=== PATIENT | female | born 1965 | race African-American/Black ===

== ENCOUNTER 2016-12-06 08:01 | Inpatient (IN) | payer OTHER ==
[~2016-12-06] VITALS: Ht 154.9 cm; Wt 60.0 kg
[2016-12-06 08:03] VITALS: BP 211/103; PULSE 114; RESP 20; TEMP 98.4; O2SAT 100
[2016-12-06] MEDS ORDERED: VITA100064 PO (08:20)
[2016-12-06] MEDS ORDERED: SODIUM CHLORIDE 0.9% FLUSH 10 ML FLUSH IVF PRN (09:00)
[2016-12-06 09:02] VITALS: RESP 18; O2SAT 98
--- NOTE | 2016-12-06 09:02 | PD ---
HPI Chief Complaint: Numbness/Tingling Time Seen by Provider: 08:42 Travel History International Travel<30 days: No Contact w/Intl Traveler<30days: No Traveled to known affect area: No History of Present Illness HPI This patient complains of weakness and numbness in her right hand. She also has some speech slurring and facial droop. Duration is 24 hours. Started yesterday at 9 AM. No alleviating factors. She is not better or worse since yesterday. No left-sided symptoms. She denies headache or head injury. She takes no blood thinners. Symptoms are moderately severe. She has no history of TIA or CVA. Blood pressure is 200 systolic on multiple checks. She says that she is not supposed to be on antihypertensives. PFSH Past Medical History ?: Not : 4 Para: 3 Miscarriage: 1 Past Surgical History Surgical History: No Previous Surgery Social History Alcohol Use: No Tobacco Use: No Substance Use: No Allergies-Medications (Allergen,Severity, Reaction): Coded Allergies: No Known Allergies (Unverified , 12/06/16) Reported Meds & Prescriptions Reported Meds & Active Scripts Active Reported Vitamin D (Cholecalciferol) 1,000 Unit Tab 1,000 Units PO DAILY Review of Systems General / Constitutional: No: Fever Eyes: No: Visual changes HENT: No: Headaches Cardiovascular: No: Chest Pain or Discomfort Respiratory: No: Shortness of Breath Gastrointestinal: No: Abdominal Pain Genitourinary: No: Dysuria Musculoskeletal: No: Pain Skin: No Rash Neurologic: Positive: Weakness, Slurred Speech, Sensory Disturbance Psychiatric: No: Depression Endocrine: No: Polydipsia Hematologic/Lymphatic: No: Easy Bruising Physical Exam Narrative GENERAL: Well-nourished, well-developed patient in no apparent distress. SKIN: Focused skin assessment reveals no rash and nodules. Skin is Warm and dry. HEAD: Atraumatic. Normocephalic. EYES: Pupils equal and round. No scleral icterus. No injection or drainage. ENT: No nasal bleeding or discharge. Mucous membranes pink and moist. NECK: Trachea midline. No JVD. No meningeal signs CARDIOVASCULAR: Regular rate and rhythm. No murmur appreciated. RESPIRATORY: No accessory muscle use. Clear to auscultation. Breath sounds equal bilaterally. GASTROINTESTINAL: Abdomen soft, non-tender, nondistended. Hepatic and splenic margins not palpable. MUSCULOSKELETAL: No obvious deformities. No clubbing. No cyanosis. No edema. NEUROLOGICAL: Awake and alert. No obvious cranial nerve deficits. 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 Legs show full strength. Has subjective diminishment of sensation in the right hand to light and sharp touch. Right forearm and upper arm are normal. Understandable but slightly slurred speech. Mental status is normal. Demonstrates right sided facial droop PSYCHIATRIC: Appropriate mood and affect; insight and judgment normal. Data Data Last Documented VS Vital Signs Date Time Temp Pulse Resp B/P Pulse Ox O2 Delivery O2 Flow Rate FiO2 12/06/16 09:58 83 18 183/99 97 Room Air 12/06/16 08:03 98.4 Orders Electrocardiogram (12/06/16 08:49) Prothrombin Time / Inr (Pt) (12/06/16 08:49) Act Partial Throm Time (Ptt) (12/06/16 08:49) Complete Blood Count With Diff (12/06/16 08:49) Basic Metabolic Panel (Bmp) (12/06/16 08:49) Ct Brain W/O Iv Contrast(Rout) (12/06/16 08:49) Ecg Monitoring (12/06/16 08:49) Iv Access Insert/Monitor (12/06/16 08:49) Oximetry (12/06/16 08:49) Sodium Chloride 0.9% Flush (Ns Flush) (12/06/16 09:00) Ed Urine Pregnancytest Poc (12/06/16 08:49) Labs Laboratory Tests Test 12/06/16 08:45 White Blood Count 8.8 TH/MM3 Red Blood Count 4.59 MIL/MM3 Hemoglobin 12.7 GM/DL Hematocrit 38.4 % Mean Corpuscular Volume 83.8 FL Mean Corpuscular Hemoglobin 27.6 PG Mean Corpuscular Hemoglobin 33.0 % Concent Red Cell Distribution Width 13.9 % Platelet Count 399 TH/MM3 Mean Platelet Volume 8.8 FL Neutrophils (%) (Auto) 50.7 % Lymphocytes (%) (Auto) 35.8 % Monocytes (%) (Auto) 8.7 % Eosinophils (%) (Auto) 4.3 % Basophils (%) (Auto) 0.5 % Neutrophils # (Auto) 4.5 TH/MM3 Lymphocytes # (Auto) 3.2 TH/MM3 Monocytes # (Auto) 0.8 TH/MM3 Eosinophils # (Auto) 0.4 TH/MM3 Basophils # (Auto) 0.0 TH/MM3 CBC Comment DIFF FINAL Differential Comment Prothrombin Time 11.4 SEC Prothromb Time International 1.0 RATIO Ratio Activated Partial 28.6 SEC Thromboplast Time Sodium Level 139 MEQ/L Potassium Level 3.2 MEQ/L Chloride Level 106 MEQ/L Carbon Dioxide Level 25.7 MEQ/L Anion Gap 7 MEQ/L Blood Urea Nitrogen 11 MG/DL Creatinine 0.73 MG/DL Estimat Glomerular Filtration 103 ML/MIN Rate Random Glucose 128 MG/DL Calcium Level 8.5 MG/DL [facility] Medical Decision Making Medical Screen Exam Complete: Yes Emergency Medical Condition: Yes Medical Record Reviewed: Yes Differential Diagnosis Acute ischemic stroke, intracranial hemorrhage, hypertensive emergency Narrative Course I have reviewed the patient's electronic medical record. IV placed Patient's blood pressure is 200 systolic but she is appearing to have an acute ischemic stroke so I'm going to employ permissive hypertension at this point. Should her systolic exceed 220 I will treat with IV labetalol. I reviewed her EKG reveals sinus rhythm without ectopy Extended cardiac monitoring shows sinus rhythm without ectopy CBC is normal Metabolic profile is normal Coagulation studies are normal Urine is negative Brain CT shows chronic ischemic white matter change without hemorrhage Blood pressure now down to 180 systolic Case reviewed with hospitalist will admit for acute ischemic stroke but not a stroke alert as this is well outside the window Diagnosis Primary Impression: Acute ischemic stroke Additional Impression: Accelerated hypertension Admitting Information Admitting Physician Requests: Admit Efrain Reilly MD Dec 06, 2016 09:02
[2016-12-06 09:14] LABS: AUTOMATED NEUTROPHIL # 4.5 TH/MM3 (1.8-7.7); BASOPHIL % 0.5 % (0.0-2.0); EOSINOPHIL # 0.4 TH/MM3 (0-0.4); EOSINOPHIL % 4.3 % (0.0-4.0); HEMATOCRIT 38.4 % (35.0-46.0); HEMO FLAGS DIFF FINAL; LYMPH % 35.8 % (9.0-44.0); LYMPHOCYTE # 3.2 TH/MM3 (1.0-4.8); MEAN CELL VOLUME 83.8 FL (80.0-100.0); MEAN CORPUSCULAR HEMOGLOBIN 27.6 PG (27.0-34.0); MONO % 8.7 % (0.0-8.0); NEUT % 50.7 % (16.0-70.0); PLATELET COUNT 399 TH/MM3 (150-450); RED BLOOD COUNT 4.59 MIL/MM3 (4.00-5.30); RED CELL DISTRIBUTION WIDTH 13.9 % (11.6-17.2); WHITE BLOOD COUNT 8.8 TH/MM3 (4.0-11.0)
[2016-12-06 09:26] LABS: BICARBONATE 25.7 MEQ/L (21.0-32.0); POTASSIUM 3.2 MEQ/L (3.5-5.1)
[2016-12-06 09:29] LABS: APTT (PATIENT) 28.6 SEC (24.3-30.1); PROTHROMBIN TIME - PATIENT 11.4 SEC (9.8-11.6)
[2016-12-06 09:58] VITALS: BP 183/99; PULSE 83; RESP 18; O2SAT 97
--- NOTE | 2016-12-06 10:03 | RADRPT ---
EXAM DATE/TIME: 12/06/2016 09:44 [facility] COMPARISON: No previous studies available for comparison. INDICATIONS : Right hand numbness and dysphasia today. RADIATION DOSE: 56.35 CTDIvol (mGy) MEDICAL HISTORY : None SURGICAL HISTORY : None. ENCOUNTER: Initial ACUITY: 1 day PAIN SCALE: 0/10 LOCATION: Bilateral head TECHNIQUE: Multiple contiguous axial images were obtained of the head. Using automated exposure control and adj ustment of the mA and/or kV according to patient size, radiation dose was kept as low as reasonably a chievable to obtain optimal diagnostic quality images. DICOM format image data is available electro nically for review and comparison. FINDINGS: Ventricles and cisterns are of normal size and configuration. Patchy hypodensities in the bilateral p eriventricular white matter left greater than right felt to represents sequelae of remote insult. The re are no signs of acute infarct, hemorrhage or mass. Osseous structures are intact. CONCLUSION: Chronic appearing white matter changes bilaterally. If there is clinical suspicion of acute ischemia than an MRI is recommended. Ty Banegas MD on December 06, 2016 at 10:00 Board Certified Radiologist. This report was verified electronically.
--- NOTE | 2016-12-06 11:25 | HHI.HP ---
HPI Service [facility] Hospitalists Primary Care Physician Robin Mueller M.D. Admission Diagnosis acute ischemic CVA Chief Complaint: slurred speech. right hand weakness Travel History International Travel<30 Days: No Contact w/Intl Traveler <30 Da: No Traveled to Known Affected Are: No History of Present Illness Pt is 50 yo with no known medical problems. She developed right facial droop and slurred speech and also right hand weakness/clumsiness yesterday about 9am or 24hrs prior to presentation. Sx's now are no better or worse. She knew she was having a stroke per her history but decided to wait. Denies headache and no hx of cva or afib. denies hx of thrombosis of any kind in her or family. In ED CT head negative and bp quite elevated...exam consistent with left hemispheric acute cva. Review of Systems Other right facial droop right hand weakness. 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 and unable to lift right arm above the shoulder ext no edema Vital Signs Date Time Temp Pulse Resp B/P Pulse Ox O2 Delivery O2 Flow Rate FiO2 12/06/16 09:58 83 18 183/99 97 Room Air 12/06/16 09:02 18 98 Room Air 12/06/16 08:03 98.4 114 20 211/103 100 Room Air Laboratory Laboratory Tests Test 12/06/16 08:45 White Blood Count 8.8 Red Blood Count 4.59 Hemoglobin 12.7 Hematocrit 38.4 Mean Corpuscular Volume 83.8 Mean Corpuscular Hemoglobin 27.6 Mean Corpuscular Hemoglobin 33.0 Concent Red Cell Distribution Width 13.9 Platelet Count 399 Mean Platelet Volume 8.8 Neutrophils (%) (Auto) 50.7 Lymphocytes (%) (Auto) 35.8 Monocytes (%) (Auto) 8.7 Eosinophils (%) (Auto) 4.3 Basophils (%) (Auto) 0.5 Neutrophils # (Auto) 4.5 Lymphocytes # (Auto) 3.2 Monocytes # (Auto) 0.8 Eosinophils # (Auto) 0.4 Basophils # (Auto) 0.0 CBC Comment DIFF FINAL Differential Comment Prothrombin Time 11.4 Prothromb Time International 1.0 Ratio Activated Partial 28.6 Thromboplast Time Sodium Level 139 Potassium Level 3.2 Chloride Level 106 Carbon Dioxide Level 25.7 Anion Gap 7 Blood Urea Nitrogen 11 Creatinine 0.73 Estimat Glomerular Filtration 103 Rate Random Glucose 128 Calcium Level 8.5 Result Diagram: 12/06/1645 12/06/16844 Assessment and Plan Problem List: (1) Acute ischemic stroke Status: Acute Plan: --Pt is 50 yo with no reported pmh --Presents with severe htn and right facial droop/slurring of speech, and right upper ext weakness. --Admitted with left hemispheric acute ischemic cva. probably embolic in nature ADDENDUM: APPEARS TO BE EMBOLISM IN LEFT MCA WITH ASSOCIATED AREA IN FRONTOPARIETAL LOBES OF ISCHEMIC CVA. I SPOKE TO IR DR CESPEDES AND SHE IS PAST THE WINDOW AND EMBOLECTOMY AT THIS POINT WOULD BE HIGH RISK FOR HEMORRHAGE. ADVISES NO INTERVENTION. SPOKE TO NEUROLOGY WHO AGREES AND NO ANTICOAGULATION AT THIS POINT. JUST ASA. ( I REVIEWED THE MRI/A AND RECOMMENDATION WITH PT AND DAUGHTER AT BEDSIDE) will get mri/a brain to eval ischemic area/distribution. ?embolic carotid u/s tele/echo to eval for embolic source might need hypercoag w/up if no obvious source neuro consulted asa ordered check FLP HOB flat. IVF permissive htn prn vasotec PT/OT/ST Pt is out of TPA window (2) HTN (hypertension) Status: Acute Plan: see above Physician Certification Order for Inpatient Services The services are ordered in accordance with Medicare regulations or non- Medicare payer requirements, as applicable. In the case of services not specified as inpatient-only, they are appropriately provided as inpatient services in accordance with the 2-midnight benchmark. days is the estimated time the patient will need to remain in the hospital, assuming treatment plan goals are met and no additional complications. Remi Escoto MD Dec 06, 2016 11:25
[2016-12-06] MEDS ORDERED: ENALAPRILAT 1.25 MG/ML VIAL IV PUSH PRN (11:30)
[2016-12-06] MEDS ORDERED: ACETAMINOPHEN 325 MG TAB PO PRN (12:00)
[2016-12-06] MEDS ORDERED: POTASSIUM CHLORIDE 10 MEQ CONTROLLED RELEASE TAB PO ONE (12:00)
[2016-12-06] MEDS: NS + KCL 20 MEQ INJ 1,000 ML IV SCH ×2 (12:00→23:55)
[2016-12-06] MEDS ORDERED: ONDANSETRON HCL 4 MG/2 ML VIAL IV PUSH PRN (12:00)
[2016-12-06] MEDS ORDERED: SODIUM CHLOR 0.9% 1000 ML INJ 1,000 ML IV SCH (12:00)
[2016-12-06] MEDS ORDERED: ASPIRIN EC 325 MG TABEC PO ONE (12:00)
[2016-12-06 12:26] LABS: BETA HCG QUANT LESS THAN 1 MIU/ML (0-5)
--- NOTE | 2016-12-06 12:34 | RADRPT ---
EXAM DATE/TIME: 12/06/2016 12:04 [facility] COMPARISON: CT BRAIN W/O CONTRAST, December 06, 2016, 9:44. INDICATIONS : CVA. Right hand numbness and dysphasia today. MEDICAL HISTORY : None. SURGICAL HISTORY : None. ENCOUNTER: Initial ACUITY: 1 day PAIN SCORE: 0/10 LOCATION: cranial Please note a normal MRA of the brain does not entirely exclude the possibility of a small aneurysm, nor the possibility of distal intracranial vessel disease. TECHNIQUE: 3D time of flight MRA was performed. Source images, multiplanar STS MIP, and 3D volume MIP reconstru ctions were reviewed. FINDINGS: There is excellent visualization of the major intracranial arteries out to the second-order branch ve ssels. There is no evidence for aneurysm, and no evidence for vascular malformation. There is a foca l short segment area of signal void/luminal narrowing best seen on the source images at the M1 divisi on of the left middle cerebral artery extending 2 mm. This is consistent with a focal severe stenosis at this level. CONCLUSION: Focal severe narrowing of the left middle cerebral artery M1 division identified. A focal thrombus at this level, partially occlusive can result in this appearance. Ty Banegas MD on December 06, 2016 at 12:28 Board Certified Radiologist. This report was verified electronically.
--- NOTE | 2016-12-06 12:38 | RADRPT ---
EXAM DATE/TIME: 12/06/2016 12:04 [facility] COMPARISON: No previous studies available for comparison. INDICATIONS : CVA. Right hand numbness and dysphasia today. MEDICAL HISTORY : None. SURGICAL HISTORY : None. ENCOUNTER: Initial ACUITY: 1 day PAIN SCORE: 0/10 LOCATION: cranial TECHNIQUE: Multiplanar, multisequence MRI of the brain was performed without contrast. FINDINGS: There are multiple small acute infarcts in the deep white matter of the left frontoparietal region, p redominantly in the left frontal lobe. There is no associated mass effect or shift. No evidence for h emorrhage. No right-sided hemispheric infarcts are identified. No hydrocephalus. No abnormal extra-axial fluid c ollections are present. There is mucosal thickening in the ethmoid air cells and maxillary sinuses. CONCLUSION: 1. Multiple small acute infarcts in the deep white matter of the left frontoparietal region, predomin antly in the left frontal lobe in a linear orientation all measuring up to about a centimeter in sanchez sverse diameter. Timothy Drake MD on December 06, 2016 at 12:31 Board Certified Radiologist. This report was verified electronically.
--- NOTE | 2016-12-06 12:46 | RADRPT ---
EXAM DATE/TIME: 12/06/2016 11:36 [facility] COMPARISON: No previous studies available for comparison. INDICATIONS : Slurred speech. MEDICAL HISTORY : Weakness. Slurred speed. Numbness, right hand. Facial droop. History of pregnancies. SURGICAL HISTORY : None. ENCOUNTER: Initial ACUITY: 2 days PAIN SCORE: 0/10 LOCATION: Bilateral neck PEAK SYSTOLIC VELOCITIES (cm/sec): ICA/CCA RATIO: Right: 1.5 Left: 1.2 ICA: Right: 108 Left: 105 CCA: Right: 73 Left: 91 ECA: Right: 76 Left: 100 VERTEBRAL: Right: 43 antegrade Left: 60 antegrade Elevated flow velocities and ICA/CCA ratios have been found to correlate with increased degrees of vessel stenosis, calculated as percentage of diameter relative to a normal segment of distal ICA/CCA FINDINGS: RIGHT CAROTID: No significant stenosis is visualized. The waveforms are within normal limits. LEFT CAROTID: No significant stenosis is visualized. The waveforms are within normal limits. VERTEBRAL ARTERIES: Antegrade flow is seen in both vertebral arteries. MISCELLANEOUS: None. CONCLUSION: Normal examination. Ty Banegas MD on December 06, 2016 at 12:43 Board Certified Radiologist. This report was verified electronically.
[2016-12-06 13:37] VITALS: BP 195/106; PULSE 97; RESP 16; TEMP 97.5; O2SAT 98
[2016-12-06 16:30] VITALS: BP 191/94; PULSE 91; RESP 18; TEMP 97.4; O2SAT 96
[2016-12-06 22:35] VITALS: BP 170/92; PULSE 82; RESP 18; TEMP 98.7; O2SAT 100
[2016-12-07] VITALS (7 sets, daily range): BP systolic 140–170; BP diastolic 82–104; PULSE 77–90; RESP 17–20; TEMP 98.4–99.5; O2SAT 98–100
--- NOTE | 2016-12-07 08:20 | MB ---
cc: EVANS HUTCHISON M.D. DATE OF CONSULTATION: 12/06/2016 HISTORY OF PRESENT ILLNESS She is a 50-year-old -[place] woman with a neurologic deficit yesterday but only came to the hospital today. It appears that she developed symptoms yesterday morning and she developed right sided weakness, predominantly involving face and arm and she was brought to the hospital today. The patient has no history of major medical problems, apparently not on any regular medications, does not take aspirin. The case was discussed with the admitting physician Dr. Escoto earlier today. EXAMINATION Exam shows the patient to be awake and reasonably alert, oriented with a dysarthric speech and moderate right facial weakness. 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 She is able to raise the right leg and oppose some reasonable resistance and the leg weakness is rather mild. Reflexes were 1+, plantar responses flexor. The pupils are equal and reactive and visual avitia full. DATA The ancillary data includes an MRI brain that showed multiple small acute infarcts in the left frontoparietal region. The carotid ultrasound showed normal findings and the MRA head showed severe narrowing of the left M1 division, possibly sub-occlusion thrombus. CBC is essentially normal. Chemistry with glucose 128, potassium 3.2, otherwise normal. INR and APTT is normal. ASSESSMENT Left middle cerebral artery distribution ischemic areas of infarction. Onset of symptoms over 24 hours before the patient came to the hospital. Therefore, not a candidate for thrombectomy, etc. Aspirin was started. She is not in atrial fibrillation and there is no known history of such. Echocardiogram to be done, we will request lipid profile and hypercoag profile. No obvious risk factors, the patient is not on any hormones, no smoking and no drug use. I will follow the neurological course. Thank you for asking us to assist in her care. Evans Hutchison MD OFC/TLL /7:28 PM /8:15 AM
[2016-12-07] MEDS: ASPIRIN EC 325 MG TABEC PO SCH (08:42)
[2016-12-07] MEDS ORDERED: PROPOFOL 200 MG/20 ML AMP IV ONE (08:57)
[2016-12-07 09:17] LABS: HDL CHOLESTEROL 72.3 MG/DL (40.0-60.0)
--- NOTE | 2016-12-07 14:08 | EKG ---
Date Performed: 12/06/2016 Time Performed: 09:20:32 PTAGE: 50 years EKG: Sinus rhythm WITH SHORT DE INTERVAL BORDERLINE ECG NO PREVIOUS TRACING DOCTOR: Jordi Bazzi Interpretating Date/Time 12/07/2016 14:07:41
--- NOTE | 2016-12-07 15:18 | HHI.PR ---
Subjective Remarks Pt still with RUE weakness and some cognitive speech deficits Pt has been ambulating in the room and in the halls without difficulty Denies any dysphagia, tolerating her diet without difficulty Pt still on permissive HTN Objective Vitals Vital Signs Date Time Temp Pulse Resp B/P Pulse Ox O2 Delivery O2 Flow Rate FiO2 12/07/16 12:00 98.4 79 18 152/92 98 12/07/16 08:24 98.7 85 18 170/92 99 12/07/16 04:50 98.6 79 18 154/92 99 12/07/16 00:30 98.6 77 17 170/104 100 12/06/16 22:35 98.7 82 18 170/92 100 12/06/16 16:30 97.4 91 18 191/94 96 12/06/16 12/06/16 12/07/16 15:00 23:00 07:00 Intake Total 100 ml Balance 100 ml Intake Oral 100 ml # Voids 2 1 2 # Bowel Movements 0 0 Result Diagram: 12/06/16 0845 12/06/16 0845 Other Results Laboratory Tests Test 12/06/16 12/07/16 08:45 08:10 White Blood Count 8.8 TH/MM3 Red Blood Count 4.59 MIL/MM3 Hemoglobin 12.7 GM/DL Hematocrit 38.4 % Mean Corpuscular Volume 83.8 FL Mean Corpuscular Hemoglobin 27.6 PG Mean Corpuscular Hemoglobin 33.0 % Concent Red Cell Distribution Width 13.9 % Platelet Count 399 TH/MM3 Mean Platelet Volume 8.8 FL Neutrophils (%) (Auto) 50.7 % Lymphocytes (%) (Auto) 35.8 % Monocytes (%) (Auto) 8.7 % Eosinophils (%) (Auto) 4.3 % Basophils (%) (Auto) 0.5 % Neutrophils # (Auto) 4.5 TH/MM3 Lymphocytes # (Auto) 3.2 TH/MM3 Monocytes # (Auto) 0.8 TH/MM3 Eosinophils # (Auto) 0.4 TH/MM3 Basophils # (Auto) 0.0 TH/MM3 CBC Comment DIFF FINAL Differential Comment Prothrombin Time 11.4 SEC Prothromb Time International 1.0 RATIO Ratio Activated Partial 28.6 SEC Thromboplast Time Sodium Level 139 MEQ/L Potassium Level 3.2 MEQ/L Chloride Level 106 MEQ/L Carbon Dioxide Level 25.7 MEQ/L Anion Gap 7 MEQ/L Blood Urea Nitrogen 11 MG/DL Creatinine 0.73 MG/DL Estimat Glomerular Filtration 103 ML/MIN Rate Random Glucose 128 MG/DL Calcium Level 8.5 MG/DL Human Chorionic Gonadotropin, LESS THAN 1 Quant MIU/ML Erythrocyte Sedimentation Rate 13 mm/hr Triglycerides Level 61 MG/DL Cholesterol Level 190 MG/DL LDL Cholesterol 106 MG/DL HDL Cholesterol 72.3 MG/DL Cholesterol/HDL Ratio 2.62 RATIO Imaging Last Impressions Head CT 12/06/16 0849 Signed Impressions: Service Date/Time: Tuesday, December 06, 2016 09:44 - CONCLUSION: Chronic appearing white matter changes bilaterally. If there is clinical suspicion of acute ischemia than an MRI is recommended. Ty Banegas MD Head Magnetic Resonance Angiography 12/06/16 0000 Signed Impressions: Service Date/Time: Tuesday, December 06, 2016 12:04 - CONCLUSION: Focal severe narrowing of the left middle cerebral artery M1 division identified. A focal thrombus at this level, partially occlusive can result in this appearance. Ty Banegas MD Carotid Artery Ultrasound 12/06/16 0000 Signed Impressions: Service Date/Time: Tuesday, December 06, 2016 11:36 - CONCLUSION: Normal examination. Ty Banegas MD Brain MRI 12/06/16 0000 Signed Impressions: Service Date/Time: Tuesday, December 06, 2016 12:04 - CONCLUSION: 1. Multiple small acute infarcts in the deep white matter of the left frontoparietal region, predominantly in the left frontal lobe in a linear orientation all measuring up to about a centimeter in transverse diameter. Timothy Drake MD Objective Remarks General: NAD, AAOx3 Chest: CTA Cardiac: Regular Abd: +BS, soft ND/NT Ext: RUE weakness compared to the LUE, equal strength bilaterally in LE, dysarthria. A/P Problem List: (1) Acute ischemic stroke Status: Acute Plan: - Pt is 50 yo with no reported PMH. - She presented with severe HTN and right facial droop/slurring of speech, with right upper ext weakness. - Admitted with left hemispheric acute ischemic CVA - Head CT (12/06) --> Chronic appearing white matter changes bilaterally. - Brain MRI (12/06) --> Multiple small acute infarcts in the deep white matter of the left frontoparietal region, predominantly in the left frontal lobe in a linear orientation all measuring up to about a centimeter in transverse diameter. - MRA Brain (12/06) --> Focal severe narrowing of the left middle cerebral artery M1 division identified. A focal thrombus at this level, partially occlusive can result in this appearance. - Carotid US (12/06) --> Normal examination - Pt found to have embolism in the left MCA with associated area in frontoparietal lobes of ischemic CVA. The case was discussed yesterday between Dr. Escoto and Dr. Medeiros and she was past the time frame for embolectomy and would have been high risk for hemorrhage. The case was alco discussed with Neurology and pt was felt to be high risk for bleeding with anticoagulants at this time as well. Pt placed just on ASA. - 2D echo pending, may consider MARIA INES - Telemetry - Holter monitor - Hypercoag w/up pending - Neuro following. - Start statin - IVF - Permissive HTN - PT/OT/ST - Vasotec PRN for systolic BP over 220 (2) HTN (hypertension) Status: Acute Plan: see above Cynthia Richardson Dec 07, 2016 15:18
[2016-12-07] MEDS: NS + KCL 20 MEQ INJ 1,000 ML IV SCH (15:42)
[2016-12-07] MEDS: ATORVASTATIN 10 MG TAB PO SCH (16:00)
--- NOTE | 2016-12-07 16:36 | ECHRPT ---
Indication: cva/tia CONCLUSIONS Normal left ventricular size. There is assymetric septal hypertrophy. (mild) The left ventricular systolic function is hyperdynamic with an estimated ejection fraction in the ra nge of 65- 70%. No regional wall motion abnormalities are present. [id number] mitral valve regurgitation. No mitral valve stenosis. Trace aortic valve regurgitation. There is mild tricuspid valve regurgitation. There is estimated mild pulmonary hypertension present (range 40-50 mmHg). BP: / HR: Rhythm: MEASUREMENTS (Male / Female) Normal Values Technical Quality:Good 2D ECHO LV Diastolic Diameter PLAX 4.9 cm 4.2 - 5.9 / 3.9 - 5.3 cm LV Systolic Diameter PLAX 3.2 cm IVS Diastolic Thickness 1.2 cm 0.6 - 1.0 / 0.6 - 0.9 cm LVPW Diastolic Thickness 0.8 cm 0.6 - 1.0 / 0.6 - 0.9 cm LV Relative Wall Thickness 0.4 RV Internal Dim ED PLAX 2.3 cm M-MODE Aortic Root Diameter MM 2.9 cm LA Systolic Diameter MM 3.3 cm LA Ao Ratio MM 1.1 AV Cusp Separation MM 1.8 cm DOPPLER Mitral E Point Velocity 67.6 cm/s Mitral A Point Velocity 74.5 cm/s Mitral E to A Ratio 0.9 LV E' Lateral Velocity 8.8 cm/s Mitral E to LV E' Lateral Ratio 7.7 LV E' Septal Velocity 8.9 cm/s Mitral E to LV E' Septal Ratio 7.6 TR Peak Velocity 276.0 cm/s TR Peak Gradient 30.5 mmHg FINDINGS LEFT VENTRICLE Normal left ventricular size. There is assymetric septal hypertrophy. (mild) The left ventricular systolic function is hyperdynamic with an estimated ejection fraction in the ra nge of 65- 70%. No regional wall motion abnormalities are present. RIGHT VENTRICLE Normal right ventricular size and systolic function. LEFT ATRIUM The left atrial size is normal. RIGHT ATRIUM The right atrial size is normal. ATRIAL SEPTUM Normal atrial septal thickness without atrial level shunting by limited color doppler interrogation. AORTA The aortic root and proximal ascending aorta are normal in size on limited imaging. MITRAL VALVE Structurally normal mitral valve. [id number] mitral valve regurgitation. No mitral valve stenosis. AORTIC VALVE Trileaflet aortic valve. Trace aortic valve regurgitation. TRICUSPID VALVE Structurally normal tricuspid valve. There is mild tricuspid valve regurgitation. There is estimated mild pulmonary hypertension present (range 40-50 mmHg). PULMONARY VALVE The pulmonary valve is not well visualized. VESSELS The inferior vena cava is normal in size. PERICARDIUM No pericardial effusion. Cipriano Thomas MD (Electronically Signed) Final Date:07 December 2016 16:35
[2016-12-08] VITALS (7 sets, daily range): BP systolic 135–162; BP diastolic 76–95; PULSE 70–83; RESP 18; TEMP 98–98.9; O2SAT 98–100
[2016-12-08] MEDS: NS + KCL 20 MEQ INJ 1,000 ML IV SCH (00:27)
[2016-12-08 07:32] LABS: AUTOMATED NEUTROPHIL # 4.5 TH/MM3 (1.8-7.7); BASOPHIL % 0.4 % (0.0-2.0); EOSINOPHIL # 0.2 TH/MM3 (0-0.4); EOSINOPHIL % 2.9 % (0.0-4.0); HEMATOCRIT 35.5 % (35.0-46.0); HEMO FLAGS DIFF FINAL; LYMPH % 35.8 % (9.0-44.0); MEAN CELL VOLUME 83.5 FL (80.0-100.0); MEAN CORPUSCULAR HGB CONC 33.6 % (32.0-36.0); MONO % 7.4 % (0.0-8.0); NEUT % 53.5 % (16.0-70.0); PLATELET COUNT 363 TH/MM3 (150-450); RED BLOOD COUNT 4.25 MIL/MM3 (4.00-5.30); RED CELL DISTRIBUTION WIDTH 13.9 % (11.6-17.2); WHITE BLOOD COUNT 8.4 TH/MM3 (4.0-11.0)
[2016-12-08 07:49] LABS: ANION GAP 8 MEQ/L (5-15); AST (GOT) 10 U/L (15-37); BICARBONATE 25.8 MEQ/L (21.0-32.0); BLOOD UREA NITROGEN 10 MG/DL (7-18); CHLORIDE 105 MEQ/L (98-107); GLOMERULAR FILTRATION RATE 108 ML/MIN (>89); SODIUM (NA) 139 MEQ/L (136-145)
[2016-12-08 07:50] LABS: ALT (GPT) 13 U/L (10-53)
[2016-12-08 07:52] LABS: ALKALINE PHOSPHATASE 60 U/L (45-117); TOTAL BILIRUBIN ADULT 0.4 MG/DL (0.2-1.0)
[2016-12-08] MEDS: ATORVASTATIN 10 MG TAB PO SCH (08:12)
[2016-12-08] MEDS: ASPIRIN EC 325 MG TABEC PO SCH (08:12)
--- NOTE | 2016-12-08 12:11 | HHI.PR ---
Review/Management Daily Summary 12/08 anthony yesterday and just now very much stable/improving right hemiparesis progress PT/Rehab/speech pending hypercoag data ldl 106, statin, goal ldl below 60 Subjective Subjective Comments No acute events reported No headache No chest pain No dyspnea Active Medications Current Medications Medications (Trade) Dose Ordered Sig/Myra Route Start Time Stop Time Status Last Admin (NS Flush) 2 ml UNSCH PRN IVF 12/06/16 09:00 (Vasotec Inj) 1.25 mg Q4H PRN IV PUSH 12/06/16 11:30 Aspirin 325 mg 325 mg DAILY PO 12/07/16 09:00 12/08/16 08:12 (NS + KCl 20 Meq Inj) 1,000 ml @ 84 mls/hr [id number] IV 12/06/16 12:00 12/08/16 00:27 (Zofran Inj) 4 mg Q6H PRN IV PUSH 12/06/16 12:00 (Tylenol) 650 mg Q4H PRN PO 12/06/16 12:00 (Lipitor) 10 mg DAILY PO 12/07/16 16:00 12/08/16 08:12 Allergies Allergies Coded Allergies No Known Allergies (Unverified12/06/16) Exam I&O / VS 12/07/16 12/07/16 12/08/16 15:00 23:00 07:00 Intake Total 240 ml 1008 ml Balance 240 ml 1008 ml Intake Oral 240 ml IV Total 1008 ml # Voids 2 1 Vital Signs Date Time Temp Pulse Resp B/P Pulse Ox O2 Delivery O2 Flow Rate FiO2 12/08/16 11:45 98.4 77 18 138/80 98 12/08/16 07:55 98.0 83 18 140/81 100 12/08/16 04:48 98.1 70 18 141/82 100 12/08/16 00:41 98.1 76 18 162/93 98 12/07/16 20:21 98.7 80 18 140/91 99 12/07/16 20:01 90 12/07/16 16:30 99.5 81 20 147/82 99 Objective Radiology Results Allergies Coded Allergies Type Severity Reaction Last Updated Verified No Known Allergies 12/06/16 No Recent Impressions Head CT 12/06/16 0845 Signed Impressions: Service Date/Time: Tuesday, December 06, 2016 09:44 - CONCLUSION: Chronic appearing white matter changes bilaterally. If there is clinical suspicion of acute ischemia than an MRI is recommended. Ty Banegas MD Head Magnetic Resonance Angiography 12/06/16 0000 Signed Impressions: Service Date/Time: Tuesday, December 06, 2016 12:04 - CONCLUSION: Focal severe narrowing of the left middle cerebral artery M1 division identified. A focal thrombus at this level, partially occlusive can result in this appearance. Ty Banegas MD Carotid Artery Ultrasound 12/06/16 0000 Signed Impressions: Service Date/Time: Tuesday, December 06, 2016 11:36 - CONCLUSION: Normal examination. Ty Banegas MD Brain MRI 12/06/16 0000 Signed Impressions: Service Date/Time: Tuesday, December 06, 2016 12:04 - CONCLUSION: 1. Multiple small acute infarcts in the deep white matter of the left frontoparietal region, predominantly in the left frontal lobe in a linear orientation all measuring up to about a centimeter in transverse diameter. Timothy Drake MD //// 06:00 18:00 06:00 18:00 06:00 18:00 Intake Total 100 ml 240 ml 1008 ml Balance 100 ml 240 ml 1008 ml Intake Oral 100 ml 240 ml IV Total 1008 ml # Voids 3 2 2 1 # Bowel Movements 0 0 Laboratory Tests Test 12/06/16 12/07/16 12/08/16 08:45 08:10 07:02 White Blood Count 8.8 TH/MM3 8.4 TH/MM3 Red Blood Count 4.59 MIL/MM3 4.25 MIL/MM3 Hemoglobin 12.7 GM/DL 11.9 GM/DL Hematocrit 38.4 % 35.5 % Mean Corpuscular Volume 83.8 FL 83.5 FL Mean Corpuscular Hemoglobin 27.6 PG 28.0 PG Mean Corpuscular Hemoglobin 33.0 % 33.6 % Concent Red Cell Distribution Width 13.9 % 13.9 % Platelet Count 399 TH/MM3 363 TH/MM3 Mean Platelet Volume 8.8 FL 8.3 FL Neutrophils (%) (Auto) 50.7 % 53.5 % Lymphocytes (%) (Auto) 35.8 % 35.8 % Monocytes (%) (Auto) 8.7 % 7.4 % Eosinophils (%) (Auto) 4.3 % 2.9 % Basophils (%) (Auto) 0.5 % 0.4 % Neutrophils # (Auto) 4.5 TH/MM3 4.5 TH/MM3 Lymphocytes # (Auto) 3.2 TH/MM3 3.0 TH/MM3 Monocytes # (Auto) 0.8 TH/MM3 0.6 TH/MM3 Eosinophils # (Auto) 0.4 TH/MM3 0.2 TH/MM3 Basophils # (Auto) 0.0 TH/MM3 0.0 TH/MM3 CBC Comment DIFF FINAL DIFF FINAL Differential Comment Prothrombin Time 11.4 SEC Prothromb Time International 1.0 RATIO Ratio Activated Partial 28.6 SEC Thromboplast Time Sodium Level 139 MEQ/L 139 MEQ/L Potassium Level 3.2 MEQ/L 4.0 MEQ/L Chloride Level 106 MEQ/L 105 MEQ/L Carbon Dioxide Level 25.7 MEQ/L 25.8 MEQ/L Anion Gap 7 MEQ/L 8 MEQ/L Blood Urea Nitrogen 11 MG/DL 10 MG/DL Creatinine 0.73 MG/DL 0.70 MG/DL Estimat Glomerular Filtration 103 ML/MIN 108 ML/MIN Rate Random Glucose 128 MG/DL 95 MG/DL Calcium Level 8.5 MG/DL 8.2 MG/DL Human Chorionic Gonadotropin, LESS THAN 1 Quant MIU/ML Erythrocyte Sedimentation Rate 13 mm/hr Triglycerides Level 61 MG/DL Cholesterol Level 190 MG/DL LDL Cholesterol 106 MG/DL HDL Cholesterol 72.3 MG/DL Cholesterol/HDL Ratio 2.62 RATIO Total Bilirubin 0.4 MG/DL Aspartate Amino Transf 10 U/L (AST/SGOT) Alanine Aminotransferase 13 U/L (ALT/SGPT) Alkaline Phosphatase 60 U/L Total Protein 6.9 GM/DL Albumin 3.0 GM/DL Procedure Category Date Status Time Electrocardiogram CAV 12/06/16 Resulted 08:49 Prothrombin Time / LAB 12/06/16 Complete Inr (Pt) 08:49 Act Partial Throm LAB 12/06/16 Complete Time (Ptt) 08:49 Complete Blood Count LAB 12/06/16 Complete With Diff 08:49 Basic Metabolic Panel LAB 12/06/16 Complete (Bmp) 08:49 Ct Brain W/O Iv RADCT 12/06/16 Resulted Contrast(Rout) 08:49 Ecg Monitoring TX 12/06/16 Transmitted 08:49 Iv Access TX 12/06/16 Transmitted Insert/Monitor 08:49 Oximetry TX 12/06/16 Transmitted 08:49 Sodium Chloride 0.9% MED 12/06/16 In Process Flush (Ns Flush) 09:00 Ed Urine TX 12/06/16 Transmitted Pregnancytest Poc 08:49 Admit Order (Ed Use ADMITTING 12/06/16 Transmitted Only) 10:37 Admit To Inpatient ADMITTING 12/06/16 Transmitted Inpatient ADMITTING 12/06/16 Transmitted Certification Vital Signs (Adult) BECKA 12/06/16 In Process 11:20 Neuro Checks BECKA 12/06/16 In Process 11:20 Consult Neurology CONS 12/06/16 Transmitted Preparer Making Department / BECKA 12/06/16 In Process Telemetry 11:20 Lipid Profile LAB 12/07/16 Complete 06:00 Us Carotid Arteries RADUS 12/06/16 Resulted Comp Bilat Mri Brain W/O Contrast RADMR 12/06/16 Resulted Mra Brain W/O RADMR 12/06/16 Resulted Contrast (Cow) Beta Hcg (Quant/Titer) LAB 12/06/16 Complete 11:20 Nursing Bedside BECKA 12/06/16 Complete Swallow Assess 11:20 Sodium Chlor 0.9% MED 12/06/16 Complete 1000 Ml Inj (Ns 1000 M 12:00 [place] 12/06/16 Transmitted 11:20 Activity Bed Rest BECKA 12/06/16 In Process 11:20 Consult Pt Eval & PT 12/06/16 Logged Treat 11:20 Ot Request For Service OT 12/06/16 Logged 11:20 Enalaprilat Inj MED 12/06/16 In Process (Vasotec Inj) 11:30 Aspirin Ec (Ecotrin MED 12/06/16 Complete Ec) 12:00 Aspirin Ec (Ecotrin MED 12/07/16 In Process Ec) 09:00 Ns + Kcl 20 Meq Inj MED 12/06/16 In Process (Ns + Kcl 20 Meq Inj 12:00 Potassium Chloride MED 12/06/16 Complete (Kcl) 12:00 ^ Other Nursing Orders BECKA 12/06/16 In Process 11:25 (Hub Use Only)Inp Phy CONS 12/06/16 Transmitted Cons/Ref Ondansetron Inj MED 12/06/16 In Process (Zofran Inj) 12:00 Acetaminophen MED 12/06/16 In Process (Tylenol) 12:[address] 12/06/16 Complete Consult-Eval/Tx 12:09 Diet Heart Healthy DIET 12/06/16 Transmitted Lunch Equip, Iv Pump Use Of SPD 12/06/16 Logged 13:28 [place] LAB 12/06/16 Complete Sedimentation Rate 19:34 Anti-Thrombin, LAB 12/06/16 In Process Functional 19:34 Activated Protein C LAB 12/06/16 In Process Resistance 19:34 Factor V (5) Mutation LAB 12/06/16 In Process (Leiden) 19:34 Prothrombin [id number] LAB 12/06/16 In Process Mutation 19:34 Homocysteine LAB 12/06/16 In Process 19:34 Beta-2 Glycoprotein LAB 12/06/16 In Process (Gpi) Abs 19:34 Mthr Genotype LAB 12/06/16 In Process 19:34 Lupus Anticoagulant LAB 12/06/16 In Process Drvvt 19:34 Cardiolipin Abs LAB 12/06/16 In Process Igg,Igm,Iga 19:34 Protein C Activity LAB 12/06/16 In Process 19:34 Protein S Activity LAB 12/06/16 In Process 19:34 Factor Viii (8) LAB 12/06/16 In Process Activity Ref 19:34 Phosphatidylserine Abs LAB 12/06/16 In Process 19:34 Echo 2d Comp With ECH 12/07/[address] Result[address] Speech Therapy [address] 12/07/16 Logged Consult-Eval/Tx 15:13 Atorvastatin (Lipitor) MED 12/07/16 In Process 16:00 Comprehensive LAB 12/08/16 Complete Metabolic Panel 06:00 Complete Blood Count LAB 12/08/16 Complete With Diff 06:00 Holter Monitor CAV 12/07/16 Logged Recording Trapeze Set-Up ORTHO 12/07/16 Complete Vital Signs Date Time Temp Pulse Resp B/P Pulse Ox O2 Delivery O2 Flow Rate FiO2 12/08/16 11:45 98.4 77 18 138/80 98 12/08/16 07:55 98.0 83 18 140/81 100 12/08/16 04:48 98.1 70 18 141/82 100 12/08/16 00:41 98.1 76 18 162/93 98 12/07/16 20:21 98.7 80 18 140/91 99 12/07/16 20:01 90 12/07/16 16:30 99.5 81 20 147/82 99 12/07/16 12:00 98.4 79 18 152/92 98 12/07/16 08:24 98.7 85 18 170/92 99 12/07/16 04:50 98.6 79 18 154/92 99 12/07/16 00:30 98.6 77 17 170/104 100 12/06/16 22:35 98.7 82 18 170/92 100 12/06/16 16:30 97.4 91 18 191/94 96 12/06/16 13:37 97.5 97 16 195/106 98 12/06/16 09:58 83 18 183/99 97 Room Air 12/06/16 09:02 18 98 Room Air 12/06/16 08:03 98.4 114 20 211/103 100 Room Air Micro and Labs Laboratory Tests Test 12/08/16 07:02 White Blood Count 8.4 Red Blood Count 4.25 Hemoglobin 11.9 Hematocrit 35.5 Mean Corpuscular Volume 83.5 Mean Corpuscular Hemoglobin 28.0 Mean Corpuscular Hemoglobin 33.6 Concent Red Cell Distribution Width 13.9 Platelet Count 363 Mean Platelet Volume 8.3 Neutrophils (%) (Auto) 53.5 Lymphocytes (%) (Auto) 35.8 Monocytes (%) (Auto) 7.4 Eosinophils (%) (Auto) 2.9 Basophils (%) (Auto) 0.4 Neutrophils # (Auto) 4.5 Lymphocytes # (Auto) 3.0 Monocytes # (Auto) 0.6 Eosinophils # (Auto) 0.2 Basophils # (Auto) 0.0 CBC Comment DIFF FINAL Differential Comment Sodium Level 139 Potassium Level 4.0 Chloride Level 105 Carbon Dioxide Level 25.8 Anion Gap 8 Blood Urea Nitrogen 10 Creatinine 0.70 Estimat Glomerular Filtration 108 Rate Random Glucose 95 Calcium Level 8.2 Total Bilirubin 0.4 Aspartate Amino Transf 10 (AST/SGOT) Alanine Aminotransferase 13 (ALT/SGPT) Alkaline Phosphatase 60 Total Protein 6.9 Albumin 3.0 Danie Owen MD Dec 08, 2016 12:11
--- NOTE | 2016-12-08 15:38 | HHI.PR ---
Subjective Remarks No new complaints. Objective Vitals Vital Signs Date Time Temp Pulse Resp B/P Pulse Ox O2 Delivery O2 Flow Rate FiO2 12/08/16 11:45 98.4 77 18 138/80 98 12/08/16 07:55 98.0 83 18 140/81 100 12/08/16 04:48 98.1 70 18 141/82 100 12/08/16 00:41 98.1 76 18 162/93 98 12/07/16 20:21 98.7 80 18 140/91 99 12/07/16 20:01 90 12/07/16 16:30 99.5 81 20 147/82 99 12/07/16 12/07/16 12/08/16 15:00 23:00 07:00 Intake Total 240 ml 1008 ml Balance 240 ml 1008 ml Intake Oral 240 ml IV Total 1008 ml # Voids 2 1 Result Diagram: 12/08/16 0702 12/08/16 0702 Imaging Last Impressions Head CT 12/06/16 0849 Signed Impressions: Service Date/Time: Tuesday, December 06, 2016 09:44 - CONCLUSION: Chronic appearing white matter changes bilaterally. If there is clinical suspicion of acute ischemia than an MRI is recommended. Ty Banegas MD Head Magnetic Resonance Angiography 12/06/16 0000 Signed Impressions: Service Date/Time: Tuesday, December 06, 2016 12:04 - CONCLUSION: Focal severe narrowing of the left middle cerebral artery M1 division identified. A focal thrombus at this level, partially occlusive can result in this appearance. Ty Banegas MD Carotid Artery Ultrasound 12/06/16 0000 Signed Impressions: Service Date/Time: Tuesday, December 06, 2016 11:36 - CONCLUSION: Normal examination. Ty Banegas MD Brain MRI 12/06/16 0000 Signed Impressions: Service Date/Time: Tuesday, December 06, 2016 12:04 - CONCLUSION: 1. Multiple small acute infarcts in the deep white matter of the left frontoparietal region, predominantly in the left frontal lobe in a linear orientation all measuring up to about a centimeter in transverse diameter. Timothy Drake MD Objective Remarks General: NAD, AAOx3 Chest: CTA Cardiac: Regular Abd: +BS, soft ND/NT Ext: RUE weakness compared to the LUE, equal strength bilaterally in LE, dysarthria. A/P Problem List: (1) Acute ischemic stroke Status: Acute Plan: - comgmt with Neurology - Pt is 50 yo with no reported PMH. - She presented with severe HTN and right facial droop/slurring of speech, with right upper ext weakness. - Admitted with left hemispheric acute ischemic CVA - Head CT (12/06) --> Chronic appearing white matter changes bilaterally. - Brain MRI (12/06) --> Multiple small acute infarcts in the deep white matter of the left frontoparietal region, predominantly in the left frontal lobe in a linear orientation all measuring up to about a centimeter in transverse diameter. - MRA Brain (12/06) --> Focal severe narrowing of the left middle cerebral artery M1 division identified. A focal thrombus at this level, partially occlusive can result in this appearance. - Carotid US (12/06) --> Normal examination - Pt found to have embolism in the left MCA with associated area in frontoparietal lobes of ischemic CVA. The case was discussed yesterday between Dr. Escoto and Dr. Medeiros and she was past the time frame for embolectomy and would have been high risk for hemorrhage. The case was alco discussed with Neurology and pt was felt to be high risk for bleeding with anticoagulants at this time as well. Pt placed just on ASA. - 2D echo pending --> EF 65-70%, hyperdynamic LV - will obtain MARIA INES, r/o PFO - Telemetry --> NSR - Holter monitor - Hypercoag w/up pending - lipitor - Permissive HTN - Blood pressure readings have been normotensive today (12/08/16) without medication - observe - PT/OT/ST - Vasotec PRN for systolic BP over 220 - anticipate d/c to home in 1-2 days (2) HTN (hypertension) Status: Acute Plan: see above Problem Qualifiers (1) HTN (hypertension): Qualified Code: I10 - Essential hypertension Polo Andino DO Dec 08, 2016 15:38
[2016-12-09] VITALS: BP 137/89; PULSE 84; RESP 18; TEMP 97.8; O2SAT 99
[2016-12-09 04:00] VITALS: BP 125/81; PULSE 87; RESP 18; TEMP 99; O2SAT 99
[2016-12-09] MEDS: ATORVASTATIN 10 MG TAB PO SCH (07:55)
[2016-12-09] MEDS: ASPIRIN EC 325 MG TABEC PO SCH (07:55)
[2016-12-09 08:00] VITALS: BP 123/75; PULSE 79; RESP 18; TEMP 97.6; O2SAT 99
--- NOTE | 2016-12-09 10:12 | HM ---
Date Performed: 12/07/2016 Time Performed: 18:24:00 HOOKUP DATE: 12/07/16 06:24:00 PM Mon ANALYSIS START TIME: 12/07/2016 6:29:00 PM ANALYSIS END TIME: 12/08/2016 6:02:15 PM PATIENT AGE: 50 PATIENT HEIGHT PATIENT WEIGHT DRUG LIST PATIENT DIAGNOSIS: acute ischemic CVA TEST NARRATIVE: The patient's average heart rate was 82 BPM. No episodes of tachycardia wer e noted. No episodes of bradycardia were noted. No pauses exceeding 2.0 seconds were noted. No ventricular ectopics were noted. 1 supraventricular ectopics, which represented < 1% of the to camacho beat count, were noted. The highest supraventricular ectopic frequency occurred from 04:00 AM to 05:00 AM Tue. During this time 1 SVE(s) occurred. Multiple episodes of ST depression (defined a s -1.0 mm or more) were noted in channel 1. The maximum depression of -2.3 mm occurred at 03:29:40 PM Tue. Multiple episodes of ST depression (defined as -1.0 mm or more) were noted in channel 2. T he maximum depression of -2.5 mm occurred at 02:56:28 PM Tue. No episodes of ST depression (defined as -1.0 mm or more) were noted in channel 3. NO DIARY GIVEN TO PATIENT TEST INTERPRETATION: Sinus rhythm RARE PACs IN SINGLETS Signed by : Huan Seals
[2016-12-09 12:00] VITALS: BP 131/79; PULSE 88; RESP 18; TEMP 98.8; O2SAT 99
--- NOTE | 2016-12-09 12:31 | HHI.PR ---
Review/Management Daily Summary 12/08 anthony yesterday and just now very much stable/improving right hemiparesis progress PT/Rehab/speech pending hypercoag data ldl 106, statin, goal ldl below 60 12/09 very much stable/improving neuro exam data reviewed will add plavix and keep statin and asa for 6 weeks office f/u in 4 weeks i will be out of town and if needed one of my partners will be available, please call Subjective Subjective Comments No acute events reported No headache No chest pain No dyspnea Active Medications Current Medications Medications (Trade) Dose Ordered Sig/Myra Route Start Time Stop Time Status Last Admin (NS Flush) 2 ml UNSCH PRN IVF 12/06/16 09:00 (Vasotec Inj) 1.25 mg Q4H PRN IV PUSH 12/06/16 11:30 (Ecotrin Ec) 325 mg DAILY PO 12/07/16 09:00 12/09/16 07:55 (Zofran Inj) 4 mg Q6H PRN IV PUSH 12/06/16 12:00 (Tylenol) 650 mg Q4H PRN PO 12/06/16 12:00 (Lipitor) 10 mg DAILY PO 12/07/16 16:00 12/09/16 07:55 Allergies Allergies Coded Allergies No Known Allergies (Unverified12/06/16) Exam I&O / VS 12/08/16 12/08/16 12/09/16 15:00 23:00 07:00 Intake Total 480 ml Balance 480 ml Intake Oral 480 ml # Voids 4 4 Vital Signs Date Time Temp Pulse Resp B/P Pulse Ox O2 Delivery O2 Flow Rate FiO2 12/09/16 08:00 97.6 79 18 123/75 99 12/09/16 04:00 99.0 87 18 125/81 99 12/09/16 00:00 97.8 84 18 137/89 99 12/08/16 23:00 79 12/08/16 20:00 79 12/08/16 20:00 98.9 79 18 141/95 99 12/08/16 16:09 98.4 81 18 135/76 98 Danie Owen MD Dec 09, 2016 12:31
[2016-12-09] MEDS ORDERED: CLOPIDOGREL 75 MG TAB PO SCH ×2 (12:45→17:00)
[2016-12-09] MEDS ORDERED: MISCELLANEOUS NURSING INFORMATION XX PRN (15:00)
--- NOTE | 2016-12-09 15:59 | HHI.FF ---
Face to Face Verification Diagnosis: (1) Acute ischemic stroke (2) HTN (hypertension) Occupational Therapy Order: Evaluate and Treat, Improve ADL, Gross motor coordination, Fine motor coordination Speech Therapy Order: To Improve: Speech and communication skills, Cognitive skills, Swallowing Home Health Nursing Order: Medical education Signs/symptoms of disease process Nursing assessment with vital signs I have seen patient Kristin Engel on 12/09/16. My clinical findings support the need for the requested home health care services because: Deconditioned w/ increased weakness I certify that my clinical findings support that this patient is homebound because: Unsteady gait/balance Cynthia Richardson Dec 09, 2016 15:58
[2016-12-09 16:00] VITALS: BP 131/76; PULSE 89; RESP 19; TEMP 99.2; O2SAT 99
[2016-12-09] MEDS ORDERED: ASPI-99 PO (16:00)
[2016-12-09] MEDS ORDERED: PLAV75TA29 PO (16:00)
[2016-12-09] MEDS ORDERED: LIPI10TA PO (16:00)
--- NOTE | 2016-12-09 16:06 | HHI.DS ---
Discharge Summary Admission Date Dec 06, 2016 at 10:38 Discharge Date: Dec 09, 2016 Admitting Diagnosis acute ischemic CVA (1) Acute ischemic stroke Diagnosis: Principal (2) HTN (hypertension) Diagnosis: Secondary Consultants Dr. Huan Seals, Cardiology Dr. Mei Glaser, Neurology Brief History Pt is 50 yo with no known medical problems. She developed right facial droop and slurred speech and also right hand weakness/clumsiness yesterday about 9am or 24hrs prior to presentation. Sx's now are no better or worse. She knew she was having a stroke per her history but decided to wait. Denies headache and no hx of cva or afib. denies hx of thrombosis of any kind in her or family. In ED CT head negative and bp quite elevated...exam consistent with left hemispheric acute cva. CBC/BMP: 12/08/16 0702 12/08/16 0702 Significant Findings Laboratory Tests Test 12/07/16 12/08/16 08:10 07:02 LDL Cholesterol 106 MG/DL (0-99) HDL Cholesterol 72.3 MG/DL (40.0-60.0) Calcium Level 8.2 MG/DL (8.5-10.1) Aspartate Amino Transf 10 U/L (15-37) (AST/SGOT) Albumin 3.0 GM/DL (3.4-5.0) PE at Discharge General: NAD, AAOx3 Chest: CTA Cardiac: Regular Abd: +BS, soft ND/NT Ext: RUE weakness compared to the LUE but improved from earlier in the week, equal strength bilaterally in LE, mild dysarthria. Hospital Course (1) Acute ischemic stroke Status: Acute Plan: - comgmt with Neurology - Pt is 50 yo with no reported PMH. - She presented with severe HTN and right facial droop/slurring of speech, with right upper ext weakness. - Admitted with left hemispheric acute ischemic CVA - Head CT (12/06) --> Chronic appearing white matter changes bilaterally. - Brain MRI (12/06) --> Multiple small acute infarcts in the deep white matter of the left frontoparietal region, predominantly in the left frontal lobe in a linear orientation all measuring up to about a centimeter in transverse diameter. - MRA Brain (12/06) --> Focal severe narrowing of the left middle cerebral artery M1 division identified. A focal thrombus at this level, partially occlusive can result in this appearance. - Carotid US (12/06) --> Normal examination - Pt found to have embolism in the left MCA with associated area in frontoparietal lobes of ischemic CVA. The case was discussed yesterday between Dr. Escoto and Dr. Medeiros and she was past the time frame for embolectomy and would have been high risk for hemorrhage. - 2D echo pending --> EF 65-70%, hyperdynamic LV - MARIA INES (12/09/16) --> No PFO - Telemetry --> NSR - Holter monitor --> NSR - Pt to have 21 day event monitor placed at [facility] 12/14/16 - Hypercoag w/up pending - lipitor - Pt to start ASA & plavix - Blood pressure readings have been normotensive today (12/08/16 & 12/19/16) without medication - discharge to home, see orders - f/u with PCP, Dr. Ervin Whittaker, in 1 week - f/u with Neurology, Dr. Glaser in 4 weeks (2) HTN (hypertension) Status: Acute Plan: see above Pt Condition on Discharge: Stable Discharge Disposition: Discharge Home Discharge Instructions DIET: Follow Instructions for: Heart Healthy Diet Speech Therapy-Diet Recommends: Regular Activities you can perform: Regular-No Restrictions Follow up Referrals: Cardiology - 12/14/16 with [facility] Cardiology Neurology - 2 Weeks with Danie Owen MD PCP Follow-up - [address] Ervin Whittaker New Medications: Aspirin DR (Adult Aspirin EC Low Strength) 81 Mg Tabec 81 MG PO DAILY CVA #31 TAB Atorvastatin (Lipitor) 10 Mg Tab 10 MG PO DAILY CVA #31 TAB Clopidogrel (Plavix) 75 Mg Tab 75 MG PO DAILY@1700 CVA #31 TAB Continued Medications: Cholecalciferol (Vitamin D) 1,000 Unit Tab 1000 UNITS PO DAILY Nutritional Supplement #1 Ref 0 Polo Aguilar DO Dec 09, 2016 16:06
--- NOTE | 2016-12-09 16:52 | ECHRPT ---
Indication: CVA CONCLUSIONS The transesophageal study is normal by two-dimensional, color flow imaging and Doppler interrogation . BP: 124 / 70 HR: 72 Rhythm: Sinus MEASUREMENTS (Male / Female) Normal Values Technical Quality:Good DOPPLER TR Peak Velocity 226.0 cm/s TR Peak Gradient 20.4 mmHg Medications Complications There were no complications prior to, during or in recovery from the transesophag eal echocardiogram.. Proc. Components FINDINGS LEFT VENTRICLE Normal left ventricular size and wall thickness. The left ventricular systolic function is normal wi th an estimated ejection fraction in the range of 60-65%. Left ventricular diastolic function parameters a re normal. RIGHT VENTRICLE Normal right ventricular size and systolic function. LEFT ATRIUM The left atrial size is normal. RIGHT ATRIUM The right atrial size is normal. ATRIAL APPENDAGES Normal left atrial appendage size with no evidence of thrombus formation. ATRIAL SEPTUM Normal atrial septal thickness without atrial level shunting by limited color doppler interrogation. AORTA The aortic root and proximal ascending aorta are normal in size on limited imaging. MITRAL VALVE Structurally normal mitral valve. No mitral valve stenosis or regurgitation. AORTIC VALVE Trileaflet aortic valve. No aortic valve stenosis or regurgitation. VESSELS The inferior vena cava is normal in size. PULMONARY VALVE The pulmonary valve is not well visualized. PERICADIUM No pericardial effusion. Huan Seals MD, FACC (Electronically Signed) Final Date:09 December 2016 16:50
--- NOTE | 2016-12-09 17:03 | MB ---
cc: NOLAN MACHADO DATE OF CONSULTATION 12/09/2016 REASON FOR CONSULTATION Cardiac consultation performed on 12/09/2016. INDICATION Stroke. HISTORY OF THE PRESENT ILLNESS This is a very nice 50-year-old female. She developed a right facial droop, slurred speech, right hand weakness back on 12/05/2016, came into the emergency department. CT the head was negative but her symptoms were consistent with stroke. MRI showed scattered embolic events. We are consulted for consideration of transesophageal echocardiogram. PAST MEDICAL HISTORY None. MEDICATIONS None. FAMILY HISTORY Denies any family history of early coronary artery disease, sudden cardiac . SOCIAL HISTORY Denies alcohol, tobacco or drug use. REVIEW OF SYSTEMS Negative unless otherwise noted in the history of present illness. PHYSICAL EXAMINATION VITAL SIGNS: Temperature is 98, pulse 88, blood pressure 131/79 mmHg. GENERAL: Alert and oriented times three. No acute distress. HEENT: Exam shows pupils reactive to light and accommodation. Extraocular movements are intact. NECK: No elevation in jugular venous distension. No thyromegaly. No lymphadenopathy. No carotid bruits. LUNGS: Clear to auscultation bilaterally. CARDIOVASCULAR: Regular rate and rhythm without murmurs, rubs or gallops. ABDOMEN: Nontender, nondistended. Good bowel sounds. No hepatosplenomegaly. EXTREMITIES: No clubbing, cyanosis or edema. Good peripheral pulses. NEUROLOGIC: Cranial nerves intact. Right extremity is weak but 04/05 strength. Sensory intact. ASSESSMENT Stroke. PLAN Given her age, cardioembolic etiology would be a strong consideration. We will proceed with transesophageal echocardiogram rule out left atrial thrombus in addition to a patent foramen ovale. Medical management per neurology. If the MARIA INES is negative may consider long-term event monitor of 21 days rule out underlying arrhythmia. MD AURA Beltran/ANGEL /3:05 PM /4:59 PM
[2016-12-09 19:52] LABS: THROMBIN TIME FOR LA ND sec (13-19)
[2016-12-10] MEDS ORDERED: ASPIRIN EC 81 MG TABEC PO SCH (09:00)
[2016-12-11 03:52] LABS: PHOSPHATIDYLSERINE AB IGA LESS THAN 20.0 U/mL (()); PHOSPHATIDYLSERINE AB IGM LESS THAN 25.0 U/mL (())
== END 2016-12-09 17:17 | disposition home health service (06) | DRG 66 ==
LOC: NEPC 08:01 → NEDA 10:38 → N05B 13:23
PROVIDERS: ADMIT Hospitalist; ATTEND Hospitalist
DX: I63.232 Cerebral infarction due to unspecified occlusion or stenosis of left carotid arteries (principal); I10 Essential (primary) hypertension; I66.02 Occlusion and stenosis of left middle cerebral artery; R29.810 Facial weakness; R47.81 Slurred speech
CPT/HCPCS: 70450; 70544; 70551; 80048; 80053; 80061; 81240; 81241; 81291; 82948; 83090; 84702; 84703; 85025; 85240; 85300; 85303; 85306; 85307; 85610; 85613; 85652; 85730; 86146; 86147; 86148; 93005; 93225; 93226; 93306; 93312; 93320; 93325; 93880; J3480